=== PATIENT | male | born 1965 | race African-American/Black ===

== ENCOUNTER 2016-12-14 11:59 | Emergency (ER) | payer OTHER ==
[~2016-12-14] VITALS: Ht 175.3 cm; Wt 89.0 kg
[~2016-12-14 11:59] MED LIST: AMOX875T PO; CIPR0.3S LEFT EAR; DICL50TA3 PO; GABA100C4 PO; HYDR-3129 PO
[2016-12-14 12:00] VITALS: BP 135/94; PULSE 84; RESP 14; TEMP 98.2; O2SAT 98
--- NOTE | 2016-12-14 12:23 | PD ---
HPI Chief Complaint: Skin Problem Time Seen by Provider: 12:20 Travel History International Travel<30 days: No Contact w/Intl Traveler<30days: No Traveled to known affect area: No History of Present Illness HPI 51-year-old male presents to the emergency Department with complaint of swelling , redness, and pain to the foreskin of his uncircumcised penis times one week. He has history of balanitis and was diagnosed and treated at [place] [id number] in the last 3 months with resolution 8 time. Symptoms started again a week ago. Has not been tested for STDs. Denies dysuria, hematuria, frequency, urgency. Denies penile discharge. Denies testicular pain, swelling. Denies fever, chills, nausea, vomiting. Denies abdominal pain. Has not taken any medications or tried any treatments to alleviate his symptoms. Allergies to codeine. No other modifying factors or associated signs and symptoms. PFSH Past Medical History Cancer: No Cardiovascular Problems: Yes COPD: Yes Diminished Hearing: No Endocrine: No Genitourinary: No Hiatal Hernia: Yes Hypertension: Yes (USED TO TAKE HCTZ WHILE INCARECERATED HAS NOT TAKEN PROPRLY LAST SIX MOS) Immune Disorder: No Musculoskeletal: No Neurologic: Yes Psychiatric: No Reproductive: No Respiratory: Yes Immunizations Current: No Past Surgical History Abdominal Surgery: Yes (HERNIA REPAIR X2) Other Surgery: Yes Social History Alcohol Use: Yes (1 BEER A DAY) Tobacco Use: Yes (1 PPD) Substance Use: Yes (POT) Allergies-Medications (Allergen,Severity, Reaction): Coded Allergies: Codeine (Verified Allergy, Unknown, ITCH, 07/15/15) Reported Meds & Prescriptions Reported Meds & Active Scripts Active Diflucan (Fluconazole) 150 Mg Tab 150 Mg PO ONCE take in one week (12/21/2016) if symptoms persist Trimox 875 Mg Tab (Amoxicillin) 875 Mg Tab 875 Mg PO Q12 10 Days Ciprodex Otic Susp (Ciprofloxacin/Dexamethasone) 7.5 Ml Susp 4 Drop LEFT EAR Q12 7 Days Reported Diclofenac Sodium Dr (Diclofenac Sodium) 50 Mg Tab 50 Mg PO DAILY Randolph 10-325 mg (Hydrocodone-Acetaminophen 10-325 mg) Acetaminophen 325/10 Hydrocodone Tab 1 Tab PO Q12HR PRN Gabapentin 100 Mg Cap Unknown Dose PO DAILY Review of Systems Except as stated in HPI: all other systems reviewed are Neg Physical Exam Narrative GENERAL: Well-nourished, well-developed -[place] male male patient, in no acute distress; afebrile, nontoxic-appearing SKIN: Warm and dry. HEAD: Atraumatic. Normocephalic. EYES: Pupils equal and round. ENT: Mucosa pink and moist. NECK: Trachea midline. No lymphadenopathy. CARDIOVASCULAR: Regular rate and rhythm. No murmur appreciated. RESPIRATORY: No accessory muscle use. Clear to auscultation. Breath sounds equal bilaterally. GASTROINTESTINAL: Abdomen soft and nondisteneded; with tenderness at the umbilicus on palpation. Hepatic and splenic margins not palpable. Bowel sounds are active 4 quadrants. GENITOURINARY: UnCircumcised. Foreskin is erythematous and edematous; and glans penis is erythematous; thin white discharge noted around the glans penis. Testes descended bilaterally without evidence of rotation. No lesions or erythema. No urethral discharge noted. MUSCULOSKELETAL: No obvious deformities. No clubbing. No cyanosis. No edema. NEUROLOGICAL: Awake and alert. Oriented 3. No obvious cranial nerve deficits. Motor grossly within normal limits. Normal speech. Moves all extremities. 5/5 strength to all extremities. PSYCHIATRIC: Appropriate mood and affect; insight and judgment normal. Data Data Last Documented VS Vital Signs Date Time Temp Pulse Resp B/P Pulse Ox O2 Delivery O2 Flow Rate FiO2 12/14/16 12:00 98.2 84 14 135/94 98 Orders Gc And Chlamydia Pcr (12/14/16 12:23) Fluconazole (Diflucan) (12/14/16 13:15) Azithromycin Powd Pack (Zithromax Powd P (12/14/16 13:15) Ceftriaxone Inj (Rocephin Inj) (12/14/16 13:15) Lidocaine 1% Inj (50 Ml) (Xylocaine 1% I (12/14/16 13:15) Pill Splitter (Pill Splitter) (12/14/16 13:30) Labs Laboratory Tests Test 12/14/16 12:55 Chlamydia trachomatis DNA DETECTED (PCR) Neisseria gonorrhoeae DNA NOT DETECTED (PCR) MDM Medical Decision Making Medical Screen Exam Complete: Yes Emergency Medical Condition: Yes Medical Record Reviewed: Yes Differential Diagnosis balanoposthitis, balanitis, gonorrhea, chlamydia Narrative Course 51-year-old male is equal exam consistent with balanoposthitis. Patient is afebrile and nontoxic-appearing. He has had 3 episodes of this in the last 3 months. Was seen at [facility] the other 2 times. Urine chlamydia and gonorrhea pending. Rocephin IM, azithromycin, and Diflucan administered in the ER. Diflucan prescribed for home. The patient's repeat in one week if symptoms persist. Patient verbalized understanding and agreement with treatment plan. Patient is medically cleared and stable for discharge. Discussed reasons to return to the emergency department. Instructed patient to follow up with primary care provider. Patient agrees with treatment plan. The patients vital signs are stable and the patient is stable for outpatient follow- up and treatment. Patient discharged home, stable and in no acute distress. Diagnosis Primary Impression: Balanoposthitis Referrals: Primary Care Physician Departure Forms: Tests/Procedures, Work Release Enter return to work date: Dec 15, 2016 Additional Instructions: Keep area clean and dry Avoid sexual activity while symptoms persist Follow-up with primary care provider Return to the emergency department immediately with worsening of symptoms Med/Other Pt SpecificInfo: Prescription(s) given Scripts Fluconazole (Diflucan)150 Mg Snh597 Mg PO ONCE #1 TAB Ref 0 take in one week (12/21/2016) if symptoms persist Prov:Ashley Jefferson 12/14/16 Disposition: 01 DISCHARGE HOME Condition: Stable Ashley Jefferson Dec 14, 2016 12:22
[2016-12-14] MEDS ORDERED: DIFL150T PO (13:09)
[2016-12-14] MEDS ORDERED: LIDOCAINE HCL 1% 50 ML VIAL IM ONE (13:15)
[2016-12-14] MEDS ORDERED: AZITHROMYCIN PWD FOR SUSP 1 GM PACKET PO ONE (13:15)
[2016-12-14] MEDS ORDERED: cefTRIAXone 250 MG VIAL IM ONE (13:15)
[2016-12-14] MEDS ORDERED: FLUCONAZOLE 100 MG TAB PO ONE (13:15)
[2016-12-14] MEDS ORDERED: PILL SPLITTER OTHER PRN (13:30)
[2016-12-14 17:14] LABS: CHLAMYDIA PCR DETECTED (NOT DETECT); NEISSERIA PCR NOT DETECTED (NOT DETECT)
[2017-02-17] MEDS ORDERED: DICL50TA PO (13:23)
[2017-02-17] MEDS ORDERED: HYDR-3533 PO (14:34)
== END 2016-12-14 14:07 | disposition home or self-care (01) ==
LOC: NEPB 11:59
DX: N47.6 Balanoposthitis (principal); J44.9 Chronic obstructive pulmonary disease, unspecified; I10 Essential (primary) hypertension; F17.210 Nicotine dependence, cigarettes, uncomplicated
CPT/HCPCS: 87491; 87591; 96372; 99283; J0696

== ENCOUNTER 2017-01-25 10:26 | Emergency (ER) | payer OTHER ==
[~2017-01-25] VITALS: Ht 177.8 cm; Wt 90.0 kg
[~2017-01-25 10:26] MED LIST changes: +DIFL150T PO
[2017-01-25 10:28] VITALS: BP 153/89; PULSE 84; RESP 17; TEMP 97.7; O2SAT 98
[2017-01-25] MEDS ORDERED: GABA100C4 PO (10:45)
--- NOTE | 2017-01-25 10:57 | PD ---
HPI . penile scratch Chief Complaint: Complaint Time Seen by Provider: 10:57 Travel History International Travel<30 days: No Contact w/Intl Traveler<30days: No Traveled to known affect area: No History of Present Illness HPI 51-year-old male who was previously seen here back in November with complaints of foreskin abnormality and was found to have chlamydia here with complaints of a scratch to the shaft of his penis. Patient says the shaft scratch has been present since his last visit here and has been somewhat slow to heal. He said it initially got better, but now it is back. He does admit to itching in the area. He was advised to follow-up with his primary care provider, but has not been able to do so. Today he is requesting some form of treatment for the irritation to the shaft of the penis. He tells me that his penile discharge and dysuria has resolved completely. He is no longer having sexual intercourse with the infected partner. He has no urinary complaints. PFSH Past Medical History Cancer: No Cardiovascular Problems: Yes COPD: Yes Diminished Hearing: No Endocrine: No Genitourinary: No Hiatal Hernia: Yes Hypertension: Yes (USED TO TAKE HCTZ WHILE INCARECERATED HAS NOT TAKEN PROPRLY LAST SIX MOS) Immune Disorder: No Musculoskeletal: No Neurologic: Yes Psychiatric: No Reproductive: No Respiratory: Yes Immunizations Current: No Past Surgical History Abdominal Surgery: Yes (HERNIA REPAIR X2) Other Surgery: Yes Social History Alcohol Use: Yes (1 BEER A DAY) Tobacco Use: Yes (1 PPD) Substance Use: Yes (POT) Allergies-Medications (Allergen,Severity, Reaction): Coded Allergies: Codeine (Verified Allergy, Unknown, ITCH, 01/25/17) Reported Meds & Prescriptions Reported Meds & Active Scripts Active Clotrimazole Topical (Clotrimazole) 1% Cream 1 Applic TOPICAL BID Reported Gabapentin 100 Mg Cap 100 Mg PO DAILY Review of Systems General / Constitutional: No: Fever Eyes: No: Visual changes HENT: No: Headaches Cardiovascular: No: Chest Pain or Discomfort Respiratory: No: Shortness of Breath Gastrointestinal: No: Abdominal Pain Genitourinary: No: Dysuria Musculoskeletal: No: Pain Skin: Positive Itching, Positive Other (scratch to shaft of penis), No Rash Neurologic: No: Weakness Psychiatric: No: Depression Endocrine: No: Polydipsia Hematologic/Lymphatic: No: Easy Bruising Physical Exam Narrative GENERAL: AAO x 3, no acute distress, Well-nourished, well-developed patient. SKIN: Warm and dry. No visible rashes or bruising. HEAD: Normocephalic and atraumatic. EYES: No scleral icterus. No injection or drainage. ENT: No nasal drainage noted. Mucous membranes pink. Airway patent. NECK: Supple, trachea midline. No JVD. CARDIOVASCULAR: Regular rate and rhythm without murmurs, gallops, or rubs. RESPIRATORY: Breath sounds equal bilaterally. No accessory muscle use. No rhonchi or rales. GASTROINTESTINAL: Abdomen soft, non-tender, nondistended. EXTREMITIES: No cyanosis or edema. 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 no erythema, edema purulence. NO penile discharge. BACK: Nontender without obvious deformity. No CVA tenderness. PSYCH: AAO x 3, normal affect. Data Data Last Documented VS Vital Signs Date Time Temp Pulse Resp B/P Pulse Ox O2 Delivery O2 Flow Rate FiO2 01/25/17 10:28 97.7 84 17 153/89 98 MDM Medical Decision Making Medical Screen Exam Complete: Yes Emergency Medical Condition: Yes Medical Record Reviewed: Yes Differential Diagnosis Balanitis, less likely chlamydia, less likely gonorrhea, less likely syphilis Narrative Course 51-year-old male who was previously seen here back in November with complaints of foreskin abnormality and was found to have chlamydia here with complaints of a scratch to the shaft of his penis. Patient says the shaft scratch has been present since his last visit here and has been somewhat slow to heal. He said it initially got better, but now it is back. He does admit to itching in the area. He was advised to follow-up with his primary care provider, but has not been able to do so. Today he is requesting some form of treatment for the irritation to the shaft of the penis. He tells me that his penile discharge and dysuria has resolved completely. He is no longer having sexual intercourse with the infected partner. He has no urinary complaints. Patient seen and examined. He has a small excoriation to the shaft of his penis. He does have some pruritus. I provided him with clotrimazole topical twice daily. Advised no scratching to the area. I've advised him to follow-up with primary care provider as he has recurrent balanitis and may need to consider circumcision. Patient verbalized understanding of instructions, questions were answered, and thanked me for their care. I advised them if their condition worsens, please return to the nearest emergency room for further care. Diagnosis Primary Impression: Balanitis Patient Instructions: Balanitis (ED), General Instructions Additional Instructions: Please return to emergency department if your symptoms return or worsen. Follow up with your primary care provider. Take medications as prescribed. Please follow up with her primary care provider, you may need to discuss further treatment options. Med/Other Pt SpecificInfo: Prescription(s) given Scripts Clotrimazole Topical 1% Cream1 Applic TOPICAL BID #15 GM Prov:Alex Saldaña MD 01/25/17 Disposition: 01 DISCHARGE HOME Condition: Stable [place] Joe Jan 25, 2017 10:57
[2017-01-25] MEDS ORDERED: CLOT1CRE TOPICAL (11:02)
[2017-02-17] MEDS ORDERED: DICL50TA PO (13:23)
[2017-02-17] MEDS ORDERED: HYDR-3533 PO (14:34)
== END 2017-01-25 11:12 | disposition home or self-care (01) ==
LOC: NETRI 10:26
DX: N48.1 Balanitis (principal); F17.210 Nicotine dependence, cigarettes, uncomplicated; F12.10 Cannabis abuse, uncomplicated; J44.9 Chronic obstructive pulmonary disease, unspecified
CPT/HCPCS: 99282

== ENCOUNTER 2017-12-13 22:21 | Emergency (ER) | payer OTHER ==
[~2017-12-13] VITALS: Ht 177.8 cm; Wt 85.0 kg
[~2017-12-13 22:21] MED LIST changes: -AMOX875T PO; -CIPR0.3S LEFT EAR; +CLOT1CRE TOPICAL; +DICL50TA PO; -DICL50TA3 PO; -DIFL150T PO; -HYDR-3129 PO; +HYDR-3533 PO
[2017-12-13 22:24] VITALS: BP 149/97; PULSE 83; RESP 16; TEMP 98.5; O2SAT 99
[2017-12-13] MEDS ORDERED: PRED20 PO (23:12)
[2017-12-13] MEDS ORDERED: ZITHTAB PO (23:12)
--- NOTE | 2017-12-13 23:12 | PD ---
HPI Chief Complaint: Cold / Flu Symptoms Time Seen by Provider: 22:49 Travel History International Travel<30 days: No Contact w/Intl Traveler<30days: No Traveled to known affect area: No History of Present Illness HPI 52-year-old male complains of cough and congestion and wheezing. Patient states that his symptoms started a week ago. Patient denies any fever chills. Patient denies any chest pain. Patient has history of COPD. Patient has inhaler at home. Patient is a smoker. PFSH Past Medical History Cancer: No Cardiovascular Problems: Yes COPD: Yes Diminished Hearing: No Endocrine: No Genitourinary: No Hiatal Hernia: Yes Hypertension: Yes (USED TO TAKE HCTZ WHILE INCARECERATED HAS NOT TAKEN PROPRLY LAST SIX MOS) Immune Disorder: No Musculoskeletal: No Neurologic: Yes Psychiatric: No Reproductive: No Respiratory: Yes Immunizations Current: No Past Surgical History Abdominal Surgery: Yes (HERNIA REPAIR X2) Other Surgery: Yes Social History Alcohol Use: Yes (1 BEER A DAY) Tobacco Use: Yes (1 PPD) Substance Use: Yes (POT) Allergies-Medications (Allergen,Severity, Reaction): Coded Allergies: codeine (Unverified Allergy, Unknown, ITCH, 12/13/17) Reported Meds & Prescriptions Reported Meds & Active Scripts Active Review of Systems General / Constitutional: No: Fever Eyes: No: Visual changes HENT: No: Headaches Cardiovascular: No: Chest Pain or Discomfort Respiratory: Positive: Cough, Wheezing, No: Shortness of Breath Gastrointestinal: No: Abdominal Pain Genitourinary: No: Dysuria Musculoskeletal: No: Pain Skin: No Rash Neurologic: No: Weakness Psychiatric: No: Depression Endocrine: No: Polydipsia Hematologic/Lymphatic: No: Easy Bruising Physical Exam Narrative GENERAL: Well-nourished, well-developed patient. SKIN: Focused skin assessment warm/dry. HEAD: Normocephalic. EYES: No scleral icterus. No injection or drainage. NECK: Supple, trachea midline. No JVD or lymphadenopathy. CARDIOVASCULAR: Regular rate and rhythm without murmurs, gallops, or rubs. RESPIRATORY: Breath sounds equal bilaterally. No accessory muscle use. Patient has mild expiratory wheezes bilaterally. No rhonchi. GASTROINTESTINAL: Abdomen soft, non-tender, nondistended. MUSCULOSKELETAL: No cyanosis, or edema. BACK: Nontender without obvious deformity. No CVA tenderness. Data Data Last Documented VS Vital Signs Date Time Temp Pulse Resp B/P (MAP) Pulse Ox O2 Delivery O2 Flow Rate FiO2 12/13/17 22:24 98.5 83 16 149/97 (114) 99 Room Air Orders Orders Duoneb X 1 As A Single Dose (12/13/17 23:15) Dexamethasone Inj (Decadron Inj) (12/13/17 23:15) MDM Medical Decision Making Medical Screen Exam Complete: Yes Emergency Medical Condition: Yes Differential Diagnosis Differential diagnosis including acute exacerbation COPD, bronchitis, pneumonia. Narrative Course 52-year-old male with persistent cough for the past week. History of COPD. Patient is a smoker. Albuterol and Atrovent unit dose treatment 1. Decadron 8 mg IM. Diagnosis Primary Impression: Bronchitis Additional Impression: COPD with acute exacerbation Patient Instructions: General Instructions Additional Instructions: Use inhaler as directed. Take medications as directed. Follow-up with personal physician. Return if worse. Med/Other Pt SpecificInfo: Prescription(s) given Scripts Prednisone (Prednisone) 20 Mg Tab 20 MG PO BID, #10 TAB 0 Refills Prov: Deniz Ramírez MD 12/13/17 Azithromycin (Zithromax Z-Gary) 250 Mg Dspk 250 MG PO DIRECTED for Infection, #1 DSPK 0 Refills 500 MG (2 tabs) day 1, then 1 tab days 2-5. Prov: Deniz Ramírez MD 12/13/17 Disposition: 01 DISCHARGE HOME Condition: Stable Deniz Ramírez MD Dec 13, 2017 23:12
[2017-12-13] MEDS ORDERED: DEXAMETHASONE SOD PHOS 4 MG/ML VIAL IM ONE (23:15)
[2017-12-13] MEDS ORDERED: RESP: ALBUTEROL 2.5 MG/IPRATROPIUM 0.5 MG NEB (SCH) INH ONE (23:15)
[2017-12-13] MEDS ORDERED: AZITHROMYCIN 250 MG TAB PO ONE (23:45)
== END 2017-12-14 | disposition home or self-care (01) ==
LOC: NEPD 22:21
DX: J44.1 Chronic obstructive pulmonary disease with (acute) exacerbation (principal); I10 Essential (primary) hypertension; F17.200 Nicotine dependence, unspecified, uncomplicated; F12.90 Cannabis use, unspecified, uncomplicated
CPT/HCPCS: 94664; 96372; 99283; J1100